=== PATIENT | female | born 1975 | race Two or more races ===

== ENCOUNTER → 2021-01-15 | Outpatient (CLI) | payer BC | END | disposition home or self-care (01) | LOC: CFH 09:24 | PROVIDERS: ATTEND Nurse Practitioner Family | DX: N60.02 Solitary cyst of left breast (principal); N60.01 Solitary cyst of right breast; N63.10 Unspecified lump in the right breast, unspecified quadrant; H00.015 Hordeolum externum left lower eyelid | CPT/HCPCS: 76642; 77062; 77063; 77066; G0279 ==